=== PATIENT | male | born 1945 | race Caucasian/White ===

== ENCOUNTER 2017-07-29 17:47 | Emergency (ER) | payer MEDICARE, OTHER, MEDICAID ==
[~2017-07-29] VITALS: Ht 172.7 cm; Wt 94.3 kg
[~2017-07-29 17:47] MED LIST: ACETAMINOPHEN500 M1 PO; ACYCLOVIR800 MG PO; ADULT LOW DOSE81 MG PO; ALOE VERA25 MG PO; AMITIZA8 MCG PO; AUGMENTIN 875-1 EACH PO; B-122500 MCG SL; BENTYL20 MG PO; BUMETANIDE1 MG PO; BUMETANIDE2 MG PO; CARDIZEM CD120 MG PO; CARDIZEM CD240 MG PO; CARDIZEM120 MG PO; CARTIA XT120 MG PO; CARTIA XT180 MG PO; CARVEDILOL12.5 MG PO; CEPHALEXIN500 MG PO; CLONIDINE HCL0.1 MG PO; COREG12.5 MG PO; COREG3.125 MG PO; COREG6.25 MG PO; COUMADIN5 MG PO; CULTURELLE CAP1 EACH PO; CULTURELLE1 EACH PO; DEPO-MEDRO80 MG/1 ML IM; DEPO-MEDRO80 MG/1 ML INJ; DILAUDID2 MG PO; DILTIAZEM ER90 MG PO; DULCOLAX5 MG PO; ESOMEPRAZOLE MA20 MG PO; FELODIPINE ER2.5 MG PO; FERROUS FUMARAT89 MG PO; FISH OIL 1,0001 EAC1 PO; FISH OIL300 MG PO; FLAGYL500 MG PO; FLOMAX0.4 MG PO; FOLIC ACID0.4 MG PO; FOLIC ACID20 MG PO; FUROSEMIDE20 MG PO; GABAPENTIN300 MG PO; HYDROMORPHONE HC4 MG PO; IRON55 MG PO; ISOSORBIDE MONO30 MG PO; K-TAB ER20 MEQ PO; LACTULOSE20 GM/30 M PO; LASIX20 MG PO; LEVOFLOXACIN500 MG PO; LINZESS145 MCG PO; MAG-OXIDE400 MG PO; MAGNESIUM400 MG PO; MELATIN3 MG PO; METRONIDAZOLE500 MG PO; MIRALAX17 GM PO; MULTI VITAMIN1 EACH PO; NEXIUM20 MG PO; NITROGLYCERIN0.4 MG SL; NORCO 10-325 T1 EACH PO; NORCO 5-325 TA1 EACH PO; OCUVITE SOFTGE1 EACH PO; OMEPRAZOLE20 M1 PO; OMEPRAZOLE20 MG PO; POTASSIUM CHLO10 MEQ PO; POTASSIUM CHLO20 ME1 PO; PRAVACHOL40 MG PO; PRAVACHOL80 MG PO; PRAVASTATIN SOD40 MG PO; PREDNISONE10 MG PO; PREDNISONE20 MG PO; PREDNISONE5 MG PO; SENNA PLUS TAB1 EACH PO; SENNA8.6 MG PO; SHARK CARTILAG500 MG PO; SHARK CARTILAG750 MG PO; TRAZODONE HCL50 MG PO; VANCOMYCIN HCL500 MG PO; VISION VITAMIN1 EACH PO; VITAMIN B122500 MCG PO; VITAMIN D10000 UNIT PO; ZANTAC300 MG PO; ZOFRAN4 MG PO; ZOLPIDEM TART12.5 MG PO
[2017-07-29] MEDS ORDERED: FUROSEMIDE40 MG PO (18:14)
[2017-07-29] MEDS ORDERED: BUMETANIDE2 MG PO (18:16)
[2017-07-29] MEDS ORDERED: TAMIFLU75 MG PO (19:47)
== END 2017-07-29 20:05 | disposition home or self-care (01) ==
LOC: ED 17:47
DX: J10.1 Influenza due to other identified influenza virus with other respiratory manifestations (principal); I11.0 Hypertensive heart disease with heart failure; I50.9 Heart failure, unspecified; I48.91 Unspecified atrial fibrillation; I25.2 Old myocardial infarction; Z88.1 Allergy status to other antibiotic agents; Z88.6 Allergy status to analgesic agent; Z88.8 Allergy status to other drugs, medicaments and biological substances; Z79.899 Other long term (current) drug therapy
CPT/HCPCS: 71046; 80053; 81001; 85025; 87502; 99283

== ENCOUNTER 2018-08-14 20:42 | Emergency (ER) | payer MEDICARE, OTHER ==
[~2018-08-14] VITALS: Ht 172.7 cm; Wt 94.3 kg
[~2018-08-14 20:42] MED LIST changes: +ADULT ASPIRIN R81 MG PO; +AMIODARONE HCL200 MG PO; +CALCIUM + VITA1 EACH PO; +CARVEDILOL25 MG PO; +CINNAMON500 MG PO; +DOCUSATE SODIU250 MG PO; +DULOXETINE HCL20 MG PO; +FAMOTIDINE40 MG PO; +FERROUS SULFAT325 MG PO; +FOLIC ACID0.8 MG; +FUROSEMIDE40 MG PO; +ISOSORBIDE DINI30 MG PO; +MAGNESIUM500 MG PO; +METOPROLOL SUCC25 MG PO; +TAMIFLU75 MG PO; +VITAMIN C1000 MG PO; +WARFARIN SODIUM4 MG PO
--- OUTSIDE RECORDS SUMMARY | 2018-08-14 20:44 | XMS ---
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 Regan VISIT COUNT (12 MO.) Tasha Vidal TOTAL 1 NOTE: Visits indicate total known visits. ED/UCC VISIT TRACKING (12 MO.) 08/14/2018 20:[address] [facility] [place] TYPE: Emergency COMPLAINT: - MOUTH PAIN NON INJURY INPATIENT VISIT TRACKING (12 MO.) No inpatient visits to display in this time frame [id number]
[2018-08-14] MEDS ORDERED: ORABASE11.9 GM MM (21:21)
[2018-08-14] MEDS ORDERED: VALACYCLOVIR1000 MG PO (21:21)
== END 2018-08-14 21:32 | disposition home or self-care (01) ==
LOC: ED 20:42
DX: B00.1 Herpesviral vesicular dermatitis (principal); G35 Multiple sclerosis; I48.91 Unspecified atrial fibrillation; I25.2 Old myocardial infarction; I11.0 Hypertensive heart disease with heart failure; I50.9 Heart failure, unspecified; Z95.5 Presence of coronary angioplasty implant and graft; Z90.49 Acquired absence of other specified parts of digestive tract; Z88.1 Allergy status to other antibiotic agents; Z88.6 Allergy status to analgesic agent; Z88.8 Allergy status to other drugs, medicaments and biological substances; Z79.899 Other long term (current) drug therapy; Z79.01 Long term (current) use of anticoagulants; Z79.82 Long term (current) use of aspirin
CPT/HCPCS: 99282

== ENCOUNTER 2018-12-23 17:40 | Observation (INO) | payer MEDICARE, OTHER ==
[~2018-12-23] VITALS: Ht 172.7 cm; Wt 119.2 kg
[~2018-12-23 17:40] MED LIST changes: -CARVEDILOL25 MG PO; +ORABASE11.9 GM MM; +VALACYCLOVIR1000 MG PO
--- OUTSIDE RECORDS SUMMARY | 2018-12-23 17:44 | XMS ---
PreManage Notification: REINA LEWIS Security Materials Intern Events No recent Security Events currently on file CRITERIA MET - [facility] - 2 Visits in 30 Days CARE PROVIDERS Chavez Clarke DO Family Medicine Current PHONE: Unknown DELMA WALKER Internal Medicine 08/15/2018-Current PHONE: Unknown Chavez Clarke DO Primary Care Current PHONE: Unknown Gretchen has no Care Guidelines for this patient. Care History Medical/Surgical 08/15/2018 [facility] - Patient is currently established with [facility]. If patient is seen in the ED during business hours. Please contact CHWs at [facility]. Care Recommendation: This patient has had 5 or more Emergency Department visits in the last 12 months.\T\nbsp; Patient requires education on the scope and purpose of the ED as an acute care provider not a Primary Care Provider and should not be utilized for chronic conditions.\T\nbsp; These are guidelines and the provider should exercise clinical judgment when providing care. E.D. VISIT COUNT (12 MO.) 3 MARTHA Vidal TOTAL 3 NOTE: Visits indicate total known visits. ED/UCC VISIT TRACKING (12 MO.) 12/23/2018 17:41 [facility] [place] TYPE: Emergency COMPLAINT: - CONFUSION 12/23/2018 00:00 [facility] [place] TYPE: Emergency COMPLAINT: - CONFUSED 08/14/2018 20:42 [facility] [place] TYPE: Emergency COMPLAINT: - MOUTH PAIN NON INJURY DIAGNOSES: - Allergy status to other drugs, medicaments and biological substances status - Herpesviral vesicular dermatitis - Acquired absence of other specified parts of digestive tract - Hypertensive heart disease with heart failure - Multiple sclerosis - Unspecified atrial fibrillation - Heart failure, unspecified - Allergy status to analgesic agent status - Presence of coronary angioplasty implant and graft - Other lesions of oral mucosa - Old myocardial infarction - alf (current) use of aspirin - exterminator helper termite (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
[2018-12-23] MEDS ORDERED: CARVEDILOL6.25 MG PO (18:10)
[2018-12-23] MEDS ORDERED: NORCO 5-325 TA1 EACH PO (18:20)
--- NOTE | 2018-12-23 21:15 | NUR ---
PT ARRIVE TO FLOOR VIA STRETCHER ON 2L NC. HE HAS SOME PAIN MOVING OVER TO THE BED BUT NO PAIN AT REST. CALL LIGHT IS CLOSE AND BED ALARM IS ON.
--- NOTE | 2018-12-23 22:49 | NUR ---
PT CALLED REQUESTING A WARM BLANKET, FAMILY IS IN THE ROOM VISITING AT THIS TIME. CALL LIGHT IS WITHIN REACH AND BED ALARM IS ON.
--- NOTE | 2018-12-23 23:18 | NUR ---
PT IS AWAKE IN BED. HE DENIES NEEDS AT THIS TIME. AND DAUGHTER ARE GETTING READY TO GO HOME. CALL LIGHT IS CLOSE AND BED ALARM IS ON.
--- NOTE | 2018-12-24 00:25 | NUR ---
PT IS RESTING WITH EYES CLOSED, RESPIRATIONS ARE EVEN AND NONLABORED. CALL LIGHT IS WITHIN REACH AND BED ALARM IS ON.
--- NOTE | 2018-12-24 02:20 | NUR ---
PT WAS TAKEN TO RESTROOM 2PA AND BACK TO BED. PT IS OFF O2 AT THIS TIME AND O2 SAT IS 93% RA. TAY BAUTISTA AND JOSE RN ASSISTED PT.
--- NOTE | 2018-12-24 03:00 | NUR ---
PT IS AWAKE IN BED. HE REPORTS PAIN WITH MOVEMENT BUT ANTONINO NEED FOR MOTRIN AT THIS TIME. FRESH SODA AT BEDSIDE AND WATER. PT DENIES NEEDS AT THIS TIME. CALL LIGHT IS WITHIN REACH.
--- NOTE | 2018-12-24 04:41 | NUR ---
PT IS AWAKE IN BED USING I.S. FIXED HIS TELE LEADS. HE DENIES NEEDS AT THIS TIME. CALL LIGHT IS WITHIN REACH.
--- NOTE | 2018-12-24 06:23 | NUR ---
WOKE PT TO TAKE VS. HE REQUESTED A WARM BLANKET. HE DENIES FURTHER NEEDS AT THIS TIME. CALL LIGHT IS CLOSE.
--- NOTE | 2018-12-24 06:27 | NUR ---
PT REPORTS USING 02 AT HOME DURING THE NIGHT, HE STARTED THE EVENING ON 2 LNC AND IS NOW ON RA AT 92%. HE HAS AN OSTOMY AND HIS URINAL IS AT BEDSIDE, HE DID HAVE AN INCONTINENT EPISODE IN THE ER. HE IS ON TELE #6 WITH HR BETWEEN 56 AND 60 THROUGH THE NIGHT. HE HAS BRUISING IN HIS RT GROIN/LEG AND EDEMA. HE WAS UP ONCE DURING THE NIGHT AND AMBULATED TO THE RESTROOM 2PA. IV IS INFUSING NS AT 50MLS/HR. PT DENIES DIZZINESS AND DENIES PAIN WHILE IN BED.
--- NOTE | 2018-12-24 07:23 | EKG ---
[facility] [address] [facility] [place] [address] Signed Sinus bradycardia with 1st degree AV block Right bundle branch block Abnormal ECG When compared with ECG of 28-JUN-2016 19:00, Sinus rhythm has replaced Atrial fibrillation Vent. rate has decreased BY 53 BPM QRS duration has increased T wave inversion less evident in Anterior leads Confirmed by YARELI COSTA MD ([id number]) on 12/24/2018 7:23:26 AM Electronically Signed By: YARELI COSTA MD 12/24/18 0723 PATIENT NAME: REINA LEWIS DEBBIE Electrocardiogram DATE OF : 41 PHYSICIAN: YARELI COSTA MD REPORT #: [id number] REPORT IS CONFIDENTIAL AND NOT TO BE RELEASED WITHOUT AUTHORIZATION
--- NOTE | 2018-12-24 08:04 | NUR ---
patient up in chair for breakfast, patient is currently eting breakfast, linens changed, and call light within reach
--- NOTE | 2018-12-24 08:22 | NUR ---
PT AWAKE EARLY THIS AM, TWO PERSON ASSIST [facility] BREAKFAST ORDER PLACED, IN [employer], STATES PAIN IS BETTER TO L LEG,
[2018-12-24] MEDS ORDERED: FELODIPINE ER10 MG PO (09:07)
--- NOTE | 2018-12-24 09:31 | NUR ---
PT ATE 75% OF HIS BREAKFAST, REMAINS SITTING UP IN RECLINER, SCHEDULED MEDICATIONS GIVEN, REPORTS BRUISE IN R GROIN IS ACHING, REFUSES TO REMOVE UNDERWARE WHICH IS PROBABLY PUTTING PRESSURE ON AREA. ICE PACK TO AREA FOR COMFORT. CALL LIGHT IN EASY REACH. FRESH ICE WATER. DENIES FURTHER NEEDS.
--- NOTE | 2018-12-24 11:10 | NUR ---
REVIEWED DISCHARGE INSTRUCTIONS WITH PT, AND DAUGHTER, VERBALIZES UNDERSTANDING, DENIED ANY CONCERNS OR FURTHER QUESTIONS. PHARMACY IN TO SEE PT AND AGAIN REVIEW MEDICATIONS. HOME HEALTH WILL FOLLOW UP IN HOME.DANIEL GUERRERO AT THIS TIME INTACT.
--- NOTE | 2018-12-24 11:20 | NUR ---
DISCHARGED HOME WITH AND DAUGHTER AT THIS TIME.
--- NOTE | 2018-12-24 11:22 | NUR ---
Medications reconciled using pharmacy records and patient interview. Patient is anticoagulated with warfarin for A-fib
--- NOTE | 2018-12-28 07:52 | NUR ---
FAXED CHART NOTES TO INCLUDE, FACE SHEET, ORDER, H AND P, PROG NOTE, DC SUMMARY AND PACKET, PT AND OT EVALS. DELAYED FROM PT DC ATTEMPTED TO REACH PT AT PHONE # [phone], HAD NO ANSWER ON WEDNESDAY, UNABLE TO LEAVE MESSAGE IT STATES IT HAS NOT BEEN SET UP. AGAIN TRIED WEDNESDAY WITH SAME RESPONSE. THIS MORNING WAS ABLE TO REACH THE PT AND SHE TOLD ME THAT THEY WOULD LIKE THE HOME HEALTH THROUGH [facility]. I DID GIVE CHOICE OF [facility] AND [facility] THESE WERE THE CHOICES THAT WERE AVAILABLE.
--- NOTE | 2018-12-28 08:29 | NUR ---
RECEIVED FAX CONFIRMATION.
== END 2018-12-24 11:20 | disposition home or self-care (01) ==
LOC: ED 17:40 → MS 17:42
PROVIDERS: ADMIT Internal Medicine
DX: R55 Syncope and collapse (principal); G35 Multiple sclerosis; I25.10 Atherosclerotic heart disease of native coronary artery without angina pectoris; D64.9 Anemia, unspecified; I10 Essential (primary) hypertension; I48.91 Unspecified atrial fibrillation; L76.32 Postprocedural hematoma of skin and subcutaneous tissue following other procedure; Y84.0 Cardiac catheterization as the cause of abnormal reaction of the patient, or of later complication, without mention of misadventure at the time of the procedure; G90.4 Autonomic dysreflexia; Z95.5 Presence of coronary angioplasty implant and graft; Z93.9 Artificial opening status, unspecified; Z79.01 Long term (current) use of anticoagulants; Z79.82 Long term (current) use of aspirin; Z79.891 Long term (current) use of opiate analgesic; Z79.52 Long term (current) use of systemic steroids; Z79.899 Other long term (current) drug therapy; Z79.2 Long term (current) use of antibiotics
CPT/HCPCS: 36415; 71045; 71260; 80048; 80053; 81001; 83735; 84484; 85025; 85610; 87088; 93005; 93010; 94760; 99285-25; G0378; J7030

== ENCOUNTER 2019-01-16 12:09 | Emergency (ER) | payer MEDICARE, OTHER ==
[~2019-01-16] VITALS: Ht 172.7 cm; Wt 116.0 kg
[~2019-01-16 12:09] MED LIST changes: +CARVEDILOL6.25 MG PO; +FELODIPINE ER10 MG PO
--- OUTSIDE RECORDS SUMMARY | 2019-01-16 12:12 | XMS ---
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 Care History Medical/Surgical 08/15/2018 [facility] - Patient is currently established with [facility]. If patient is seen in the ED during business hours. Please contact CHWs at [facility]. Care Recommendation: This patient has had 5 [...] providing care. E.D. VISIT COUNT (12 MO.) 2 [facility] 4 MARTHA Vidal TOTAL 6 NOTE: Visits indicate total known visits. ED/C VISIT TRACKING (12 MO.) 01/16/2019 12:09 [facility] [place] TYPE: Emergency COMPLAINT: - WEAKNESS [facility]/11/2019 17:03 [facility]: [facility] DIAGNOSES: - Other malaise - Other injury of unspecified body region, initial encounter - Other specified soft tissue disorders - Referral - Other fatigue [facility]2018 21[facility] DIAGNOSES: - Leg Swelling - Aneurysm of artery of lower extremity - Localized edema - Post-op Problem 12/23/2018 17:41 [facility] [place] TYPE: Emergency [...] oral mucosa - Old myocardial infarction - 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
[2019-01-16] MEDS ORDERED: CORRECTOL5 MG PO (12:24)
[2019-01-16] MEDS ORDERED: VITAMIN D35000 UNI1 PO (12:25)
[2019-01-16] MEDS ORDERED: DEPO-MEDRO20 MG/1 ML INJ (12:26)
[2019-01-16] MEDS ORDERED: OMEPRAZOLE20 MG PO (12:27)
--- NOTE | 2019-01-16 12:44 | EKG ---
[facility] [address] [facility] [place] [address] Signed Sinus rhythm with 1st degree AV block Right bundle branch block Abnormal ECG When compared with ECG of 23-DEC-2018 18:02, T wave inversion more evident in Anterior leads Confirmed by SHERRON ATKINSON MD ([id number]) on 01/16/2019 12:44:20 PM Electronically Signed By: SHERRON ATKINSON MD 01/16/19 1244 PATIENT NAME: JOSHUAREINAMiguel Angel LEWIS Electrocardiogram DATE OF : 41 PHYSICIAN: SHERRON ATKINSON MD REPORT #: [id number] REPORT IS CONFIDENTIAL AND NOT TO BE RELEASED WITHOUT AUTHORIZATION
== END 2019-01-16 17:46 | disposition short-term general hospital (02) ==
LOC: ED 12:09
DX: I11.0 Hypertensive heart disease with heart failure (principal); I50.9 Heart failure, unspecified; R09.02 Hypoxemia; D68.9 Coagulation defect, unspecified; I25.2 Old myocardial infarction; I48.91 Unspecified atrial fibrillation; Z88.1 Allergy status to other antibiotic agents; Z88.6 Allergy status to analgesic agent; Z88.8 Allergy status to other drugs, medicaments and biological substances; Z79.82 Long term (current) use of aspirin; Z79.899 Other long term (current) drug therapy
CPT/HCPCS: 71045; 80053; 81001; 83735; 83880; 85025; 85610; 93005; 93010; 96374; 96375; 99285-25; J1940; J2405